=== PATIENT | male | born 1935 | race Caucasian/White ===

== ENCOUNTER 2017-02-09 14:31 | Emergency (ER) | payer OTHER, BC ==
[~2017-02-09] VITALS: Ht 170.2 cm; Wt 66.1 kg
[~2017-02-09 14:31] MED LIST: CIPRO500 MG PO
[2017-02-09 15:45] LABS: ADD MIUA? YES; BILIRUBIN NEGATIVE; BLOOD SMALL; COLOR YELLOW ((YELLOW)); GLUCOSE (STRIP) NEGATIVE; KETONES NEGATIVE; LEUKOCYTES NEGATIVE; NITRITE NEGATIVE; PROTEIN (STRIP) NEGATIVE; SPECIFIC GRAVITY 1.012 (1.000-1.030); UROBILINOGEN 0.2 MG/DL (0.2-1.0)
[2017-02-09 15:47] LABS: BACTERIA NONE SEEN /HPF; EPITHELIAL CELLS NONE SEEN /HPF; MUCUS TRACE /LPF; RED BLOOD CELLS 0-5 /HPF (0-5); UCUL ADDED? NO; WHITE BLOOD CELLS 0-5 /HPF (0-5)
[2017-02-09] MEDS ORDERED: FLOMAX0.4 MG PO (16:19)
[2017-02-09 16:59] VITALS: BP 110/72
== END 2017-02-09 17:00 | disposition home or self-care (01) ==
LOC: EME 14:31
PROVIDERS: Emergency Medicine
DX: R33.9 Retention of urine, unspecified (principal); N40.0 Benign prostatic hyperplasia without lower urinary tract symptoms; T44.6X6A Underdosing of alpha-adrenoreceptor antagonists, initial encounter; Z91.128 Patient's intentional underdosing of medication regimen for other reason; Z87.891 Personal history of nicotine dependence
CPT/HCPCS: 81003; 99281; 99284

== ENCOUNTER 2017-02-18 17:01 | Inpatient (IN) | payer OTHER, BC ==
[~2017-02-18] VITALS: Ht 170.2 cm; Wt 64.4 kg
[~2017-02-18 17:01] MED LIST changes: +FLOMAX0.4 MG PO
[2017-02-18 19:06] LABS: EOSINOPHIL (%) 0.1 % (0-5); HEMATOCRIT 38.1 % (38.0-50.0); IMMATURE GRANULOCYTE (%) 0.6 % (0.0-0.7); IMMATURE GRANULOCYTE COUNT 0.1 K/uL; LYMPHOCYTE COUNT 0.5 K/uL (1.0-2.8); MCH 30.1 PG (29.0-34.0); MCHC 33.9 G/DL (30.0-36.0); MCV 88.8 FL (86-99); MEAN PLAT.VOLUME 9.5 uM^3 (9.0-12.4); MONOCYTE (%) 9.8 % (3-12); MONOCYTE COUNT 1.2 K/uL (0-0.8); PLATELET COUNT 233 K/uL (156-360); RBC DIS.WIDTH-CV 14.2 % (11.8-14.6); RBC DIS.WIDTH-SD 46.2 % (39-53); RED BLOOD COUNT 4.29 M/uL (4.00-5.50); WHITE BLOOD COUNT 11.7 K/uL (4.1-10.2)
[2017-02-18 19:16] LABS: CHLORIDE 104 mEq/L (99-109); SODIUM 136 mEq/L (136-147)
[2017-02-18 19:17] LABS: GLUCOSE 106 mg/dL (70-99)
[2017-02-18 19:19] LABS: ANION GAP 9 MEQ/L (2-14)
[2017-02-18 19:21] LABS: GFR ESTIMATE (CALCULATED) > 59 mL/min/
[2017-02-18 19:22] LABS: UREA NITROGEN (BUN) 21 mg/dL (9-23)
[2017-02-18 19:58] LABS: ADD MIUA? YES; BILIRUBIN NEGATIVE; BLOOD LARGE; COLOR AMBER ((YELLOW)); GLUCOSE (STRIP) NEGATIVE; KETONES NEGATIVE; LEUKOCYTES LARGE; NITRITE POSITIVE; PROTEIN (STRIP) 100; SPECIFIC GRAVITY 1.018 (1.000-1.030); UROBILINOGEN 0.2 MG/DL (0.2-1.0)
[2017-02-18 20:12] LABS: BACTERIA 4+ /HPF; EPITHELIAL CELLS NONE SEEN /HPF; MUCUS NONE SEEN /LPF; RED BLOOD CELLS TNTC /HPF (0-5); UCUL ADDED? YES; WHITE BLOOD CELLS TNTC /HPF (0-5)
[2017-02-18] MEDS ORDERED: FLOMAX0.4 MG PO (22:29)
[2017-02-18] MEDS ORDERED: LITE COAT ASPI325 M1 PO (22:29)
[2017-02-18 23:25] LABS: BASOPHIL COUNT 0.1 K/uL (0-0.1); EOSINOPHIL (%) 0.2 % (0-5); HEMATOCRIT 37.6 % (38.0-50.0); IMMATURE GRANULOCYTE (%) 0.4 % (0.0-0.7); IMMATURE GRANULOCYTE COUNT 0.1 K/uL; INSTRUMENT ABS NEUTROPHIL CT 10.1 K/uL; LYMPHOCYTE COUNT 1.4 K/uL (1.0-2.8); MCH 30.3 PG (29.0-34.0); MCHC 33.5 G/DL (30.0-36.0); MCV 90.4 FL (86-99); MEAN PLAT.VOLUME 9.8 uM^3 (9.0-12.4); MONOCYTE (%) 7.9 % (3-12); NEUTROPHIL (%) 79.7 % (45-76); NEUTROPHIL COUNT 10.1 K/uL (1.8-6.4); PLATELET COUNT 208 K/uL (156-360); RBC DIS.WIDTH-CV 14.4 % (11.8-14.6); RBC DIS.WIDTH-SD 47.8 % (39-53); RED BLOOD COUNT 4.16 M/uL (4.00-5.50); WHITE BLOOD COUNT 12.7 K/uL (4.1-10.2)
[2017-02-18 23:30] LABS: INTER. NORMALIZED RATIO 1.2; PROTHROMBIN TIME 13.6 SEC (10.2-12.9)
[2017-02-18 23:33] LABS: CHLORIDE 110 mEq/L (99-109); POTASSIUM 4.2 mEq/L (3.7-5.4); SODIUM 140 mEq/L (136-147)
[2017-02-18 23:35] LABS: GLUCOSE 119 mg/dL (70-99)
[2017-02-18 23:36] LABS: ANION GAP 10 MEQ/L (2-14)
[2017-02-18 23:37] LABS: TOTAL BILIRUBIN 0.9 mg/dL (0.0-1.0)
[2017-02-18 23:39] LABS: ALKALINE PHOSPHATASE 104 IU/L (3-129); GFR ESTIMATE (CALCULATED) > 59 mL/min/
[2017-02-18 23:40] LABS: UREA NITROGEN (BUN) 18 mg/dL (9-23)
[2017-02-18 23:41] VITALS: BP 101/49
[2017-02-19] VITALS (28 sets, daily range): BP systolic 83–131; BP diastolic 38–83
[2017-02-19 01:03] LABS: METH RESISTANT S AUREUS PCR NEGATIVE (NEGATIVE)
[2017-02-19 01:04] LABS: PROBE CHECK PASS; SPECIMEN PROCESSING CONTROL PASS
[2017-02-19 05:46] LABS: HEMATOCRIT 35.9 % (38.0-50.0); MCH 29.7 PG (29.0-34.0); MCHC 32.3 G/DL (30.0-36.0); MCV 92.1 FL (86-99); MEAN PLAT.VOLUME 9.7 uM^3 (9.0-12.4); PLATELET COUNT 237 K/uL (156-360); RBC DIS.WIDTH-CV 14.6 % (11.8-14.6); RBC DIS.WIDTH-SD 49.5 % (39-53); WHITE BLOOD COUNT 11.8 K/uL (4.1-10.2)
[2017-02-19 06:11] LABS: ALKALINE PHOSPHATASE 83 IU/L (3-129); ANION GAP 8 MEQ/L (2-14); CHLORIDE 108 MEQ/L (99-109); GFR ESTIMATE (CALCULATED) > 59 mL/min/; GLUCOSE 96 mg/dL (70-99); SAMPLE HEMOLYSIS CHECK 0; SAMPLE ICTERIC CHECK 0; SAMPLE LIPEMIA CHECK 0; SODIUM 141 MEQ/L (136-147); TOTAL BILIRUBIN 0.9 MG/DL (0.0-1.0); UREA NITROGEN (BUN) 16 mg/dL (9-23)
[2017-02-20] VITALS (24 sets, daily range): BP systolic 86–135; BP diastolic 48–91
[2017-02-21] VITALS (14 sets, daily range): BP systolic 91–153; BP diastolic 47–84
[2017-02-21 11:05] LABS: HEMATOCRIT 43.2 % (38.0-50.0); MCH 29.7 PG (29.0-34.0); MCHC 32.4 G/DL (30.0-36.0); MCV 91.7 FL (86-99); MEAN PLAT.VOLUME 9.5 uM^3 (9.0-12.4); PLATELET COUNT 291 K/uL (156-360); RBC DIS.WIDTH-CV 14.5 % (11.8-14.6); RBC DIS.WIDTH-SD 49.1 % (39-53); WHITE BLOOD COUNT 11.1 K/uL (4.1-10.2)
[2017-02-21 11:10] LABS: RED BLOOD COUNT 4.71 M/uL (4.00-5.50)
[2017-02-21 11:43] LABS: ANION GAP 10 MEQ/L (2-14); CHLORIDE 103 MEQ/L (99-109); GFR ESTIMATE (CALCULATED) > 59 mL/min/; GLUCOSE 95 mg/dL (70-99); POTASSIUM 3.7 MEQ/L (3.7-5.4); SAMPLE HEMOLYSIS CHECK 0; SAMPLE ICTERIC CHECK 0; SAMPLE LIPEMIA CHECK 0; SODIUM 141 MEQ/L (136-147); UREA NITROGEN (BUN) 15 mg/dL (9-23)
[2017-02-22 00:06] VITALS: BP 140/72
[2017-02-22 00:07] VITALS: BP 163/68
[2017-02-22 08:30] VITALS: BP 150/72
[2017-02-22 16:00] VITALS: BP 119/67
[2017-02-22 23:45] VITALS: BP 139/75
[2017-02-23 07:20] VITALS: BP 122/71
[2017-02-23] MEDS ORDERED: AUGMENTIN875 MG PO (11:57)
== END 2017-02-23 13:29 | disposition home health service (06) | DRG 871 ==
LOC: EME 17:01 → EDOF 22:37 → 4WEST 22:37 → ENRESERV 22:45 → 4WEST 23:42 → ENRESERV 02-21 10:25 → 4WEST 02-21 13:05 → 5EAST 02-21 13:59 → ENPENDDIS 02-23 → 5EAST 02-23 13:29
PROVIDERS: Hospitalist; Physician Assistant; Specialist
DX: A41.9 Sepsis, unspecified organism (principal); R65.21 Severe sepsis with septic shock; N39.0 Urinary tract infection, site not specified; B96.20 Unspecified Escherichia coli [E. coli] as the cause of diseases classified elsewhere; T83.031A Leakage of indwelling urethral catheter, initial encounter; Y84.6 Urinary catheterization as the cause of abnormal reaction of the patient, or of later complication, without mention of misadventure at the time of the procedure; N40.1 Benign prostatic hyperplasia with lower urinary tract symptoms; R33.9 Retention of urine, unspecified; R97.20 Elevated prostate specific antigen [PSA]; K40.90 Unilateral inguinal hernia, without obstruction or gangrene, not specified as recurrent; N43.3 Hydrocele, unspecified; F17.200 Nicotine dependence, unspecified, uncomplicated
CPT/HCPCS: 71010; 76770; 80048; 80053; 80202; 81003; 83605; 85025; 85025 91; 85027; 85610; 87040; 87077; 87086 GA; 87186; 87641; 94799; 99281; 99285; C1751; C1752; J0692; J0696; J1630; J1650; J2060; J2543; J3370; J7030; J7050; J7120

== ENCOUNTER 2017-06-08 11:53 | Emergency (ER) | payer OTHER, BC ==
[~2017-06-08] VITALS: Ht 172.7 cm; Wt 69.4 kg
[~2017-06-08 11:53] MED LIST changes: +AUGMENTIN875 MG PO; +LITE COAT ASPI325 M1 PO
[2017-06-08 13:21] LABS: ADD MIUA? YES; BILIRUBIN NEGATIVE; BLOOD SMALL; COLOR YELLOW ((YELLOW)); GLUCOSE (STRIP) NEGATIVE; KETONES NEGATIVE; LEUKOCYTES NEGATIVE; NITRITE NEGATIVE; PROTEIN (STRIP) NEGATIVE; SPECIFIC GRAVITY 1.013 (1.000-1.030); UROBILINOGEN 0.2 MG/DL (0.2-1.0)
[2017-06-08 13:29] LABS: BACTERIA NONE SEEN /HPF; EPITHELIAL CELLS NONE SEEN /HPF; MUCUS TRACE /LPF; RED BLOOD CELLS 0-5 /HPF (0-5); UCUL ADDED? NO; WHITE BLOOD CELLS 0-5 /HPF (0-5)
[2017-06-08 13:50] VITALS: BP 120/67
== END 2017-06-08 13:56 | disposition home or self-care (01) ==
LOC: EME 11:53
PROVIDERS: Physician Assistant
PROC: 0T9B70Z Drainage of Bladder with Drainage Device, Via Natural or Artificial Opening (ICD-10-PCS; principal; 2017-06-08)
DX: R33.9 Retention of urine, unspecified (principal); N40.1 Benign prostatic hyperplasia with lower urinary tract symptoms; Z91.14 Patient's other noncompliance with medication regimen; Z87.891 Personal history of nicotine dependence
CPT/HCPCS: 81003; 99281; 99284

== ENCOUNTER 2017-07-19 08:20 | Emergency (ER) | payer OTHER, BC ==
[~2017-07-19] VITALS: Ht 170.2 cm; Wt 69.0 kg
[2017-07-19 09:36] LABS: APPEARANCE SL.HAZY ((CLEAR)); BILIRUBIN NEGATIVE; BLOOD MODERATE; COLOR YELLOW ((YELLOW)); GLUCOSE (STRIP) NEGATIVE; KETONES NEGATIVE; LEUKOCYTES LARGE; NITRITE NEGATIVE; PROTEIN (STRIP) NEGATIVE; SPECIFIC GRAVITY 1.014 (1.000-1.030); UROBILINOGEN 0.2 MG/DL (0.2-1.0)
[2017-07-19 09:49] LABS: WHITE BLOOD CELLS TNTC /HPF (0-5)
[2017-07-19 09:50] LABS: BACTERIA 3+ /HPF; EPITHELIAL CELLS NONE SEEN /HPF; MUCUS NONE SEEN /LPF
[2017-07-19] MEDS ORDERED: CIPRO500 MG PO (10:47)
[2017-07-19 11:15] VITALS: BP 119/64
== END 2017-07-19 11:17 | disposition home or self-care (01) ==
LOC: EME 08:20
PROVIDERS: Physician Assistant
PROC: 0T9B70Z Drainage of Bladder with Drainage Device, Via Natural or Artificial Opening (ICD-10-PCS; principal; 2017-07-19)
DX: N40.1 Benign prostatic hyperplasia with lower urinary tract symptoms (principal); R33.8 Other retention of urine; Z87.891 Personal history of nicotine dependence
CPT/HCPCS: 81003; 87077; 87086; 87186; 99281; 99284

== ENCOUNTER 2017-09-05 12:52 | Emergency (ER) | payer OTHER, BC ==
[~2017-09-05] VITALS: Ht 170.2 cm; Wt 67.5 kg
[2017-09-05 15:15] VITALS: BP 133/91
== END 2017-09-05 15:16 | disposition home or self-care (01) ==
LOC: EME 12:52
PROC: 0T2BX0Z Change Drainage Device in Bladder, External Approach (ICD-10-PCS; principal; 2017-09-05)
DX: T83.011A Breakdown (mechanical) of indwelling urethral catheter, initial encounter (principal); N13.9 Obstructive and reflux uropathy, unspecified; N40.0 Benign prostatic hyperplasia without lower urinary tract symptoms; Z79.82 Long term (current) use of aspirin; Z87.891 Personal history of nicotine dependence
CPT/HCPCS: 99281; 99284

== ENCOUNTER 2017-10-06 06:26 | Emergency (ER) | payer OTHER, BC ==
[~2017-10-06] VITALS: Ht 170.2 cm; Wt 66.9 kg
[2017-10-06 07:36] LABS: APPEARANCE CLOUDY ((CLEAR)); BILIRUBIN NEGATIVE; BLOOD MODERATE; COLOR YELLOW ((YELLOW)); GLUCOSE (STRIP) NEGATIVE; KETONES NEGATIVE; LEUKOCYTES LARGE; NITRITE POSITIVE; PROTEIN (STRIP) 30; SPECIFIC GRAVITY 1.019 (1.000-1.030); UROBILINOGEN 0.2 MG/DL (0.2-1.0)
[2017-10-06 07:56] LABS: BACTERIA 2+ /HPF; EPITHELIAL CELLS 1+ /HPF; MUCUS NONE SEEN /LPF; RED BLOOD CELLS 20-30 /HPF (0-5); UCUL ADDED? YES; WHITE BLOOD CELLS TNTC /HPF (0-5)
[2017-10-06] MEDS ORDERED: CIPRO500 MG PO (08:12)
[2017-10-06 08:43] VITALS: BP 102/57
== END 2017-10-06 08:45 | disposition home or self-care (01) ==
LOC: EME 06:26
PROVIDERS: Emergency Medicine
PROC: 0T2BX0Z Change Drainage Device in Bladder, External Approach (ICD-10-PCS; principal; 2017-10-06)
DX: N39.0 Urinary tract infection, site not specified (principal); R39.89 Other symptoms and signs involving the genitourinary system; T83.098A Other mechanical complication of other urinary catheter, initial encounter; N40.0 Benign prostatic hyperplasia without lower urinary tract symptoms; Z87.891 Personal history of nicotine dependence; Z79.82 Long term (current) use of aspirin
CPT/HCPCS: 81003; 87086; 99281; 99284